=== PATIENT | female | born 1965 | race Caucasian/White ===

== ENCOUNTER → 2021-03-07 13:01 | Outpatient (CLI) | payer BC, SELFPAY ==
--- NOTE | ~2021-03-07 | MM_ITS ---
EXAMINATION: MM screening erendira BI w alisosn HISTORY: Screening mammogram TECHNIQUE: Craniocaudal and mediolateral oblique 3-D tomosynthesis images were obtained and synthetic 2-D images were generated. CAD analysis was submitted and interpreted. COMPARISON: 05/20/2015, 05/02/2014, 12/26/2012 bilateral digital screening mammogram examinations BREAST PARENCHYMAL COMPOSITION: The breasts are heterogeneously dense, which may obscure small masses . FINDINGS: Occasional bilateral benign calcifications. There is no evidence of suspicious mass, calcif ication, or architectural distortion to suggest malignancy in either breast. There has been no suspic ious interval change. IMPRESSION: 1. No mammographic evidence of malignancy. 2. Recommend routine screening mammography in one year. BI-RADS Category 2: Benign finding(s). Reviewed, dictated and finalized at location A.
--- NOTE | ~2021-03-07 | DEXA_ITS ---
Bone Density Report Name: Trina Yousif Age: 55 Sex: Female Ethnicity: White Date of : 1965 Indication: postmenopausal; screening for osteoporosis; Referring Provider: Daren Ha Study: Bone densitometry was performed. Exam Date: March 07, 2021 Accession number: [id number] Bone Density: Region BMD T-score Z-score Classification AP Spine (L1-L4) 0.923 -1.1 0.1 Osteopenia Femoral Neck (Left) 0.597 -2.3 -1.1 Osteopenia Total Hip (Left) 0.727 -1.8 -0.9 Osteopenia Femoral Neck (Right) 0.602 -2.2 -1.1 Osteopenia Total Hip (Right) 0.728 -1.8 -0.9 Osteopenia Total Hip Mean 0.728 -1.8 -0.9 Osteopenia World Health Organization criteria for BMD impression classify patients as: Normal (T-score at or above -1.0), Osteopenia (T-score between -1.0 and -2.5), or Osteoporosis (T-score at or below -2.5). 10-year Fracture Risk(1): Major Osteoporotic Fracture 9.3% Hip Fracture 1.4% Reported Risk Factors: [place] (), Neck BMD=0.597, BMI=24.1 (1) FRAX(R) Version 3.08. Fracture probability calculated for an untreated patient. Fracture probability may be lower if the patient has received treatment. Clinical Information Provided by Patient: Patient maximum height was 65.7 Menopause Age: 39 No regular weight bearing exercise Does not regularly consume dairy products Drinks caffeinated beverages Onset of menses at age 14 Number of children 2 Impression: The patient has low bone mass, based on the Left Femoral Neck T-score. The patient has an estimated ten-year risk of hip fracture of 1.4% and an estimated ten-year risk of major fracture of 9.3%, based on the WHO FRAX algorithm. Discussion: BONE DENSITY IS LOW AT ONE OR MORE SKELETAL SITES. This patient's lowest T-score is low at one or more skeletal sites. It meets the World Health Organization's (WHO) criteria for ?low bone mass? (T-score between -1.0 and -2.5). The patient's 10-year risk of fracture as calculated by FRAX is less than the threshold where pharmacological therapy is recommended by the National Osteoporosis Foundation (NOF). However, all treatment decisions require clinical judgment and consideration of individual patient factors, including patient preferences, comorbidities, previous drug use, risk factors not captured in the FRAX model (e.g., frailty, falls, vitamin D deficiency, increased bone turnover, interval significant decline in bone density) and possible under or overestimation of fracture risk by FRAX. The patient should follow a healthful lifestyle (good nutrition with adequate calcium and vitamin D, and appropriate weight-bearing exercise). Follow-Up: Consider repeating this study in 2 to 3 years to reassess this patient's status, or sooner if there is some new clinical indication. Reported by: TOMÁS on 03/07/2021 1:
== END ==
PROVIDERS: Visit Provider Physician Assistant
DX: Z12.31 Encounter for screening mammogram for malignant neoplasm of breast (principal); Z78.0 Asymptomatic menopausal state; M85.88 Other specified disorders of bone density and structure, other site; M85.852 Other specified disorders of bone density and structure, left thigh; M85.851 Other specified disorders of bone density and structure, right thigh
CPT/HCPCS: 77063; 77067; 77080

== ENCOUNTER 2022-06-23 00:34 | Day surgery (SDC) | payer BC, SELFPAY ==
[2022-06-19 08:50] VITALS: BMI 21.6
[2022-06-23 11:14] VITALS: BP 102/75; PULSE 96; RESP 18; TEMP 36.8; O2SAT 100; BMI 21.6
[2022-06-23] MEDS: LACTATED RINGERS 1,000 ML 150 ML IV CONT (11:39)
--- NOTE | 2022-06-23 11:45 | PM.HPGS ---
History of Present Illness History of Present Illness Consent: Risks, benefits, and alternatives have been discussed and questions answered. Patient agrees to proceed with procedure. Chief complaint: weight loss, constipation Narrative: Trina Yousif is a 56 year old female Presents for colonoscopy. Patient complaints of ongoing constipation. She has difficulty with bowel habits. Initially prescribed Linzess but this was stopped because of lack of insurance coverage. She currently takes to a lax for relief of symptoms. Patient denies any significant abdominal pain. She does report is modest weight loss. Family history is noncontributory. Previous screening colonoscopy 2013 was unremarkable. Patient presents today for colonoscopy to exclude organic disease. Review of Systems Review of Systems: Review of systems noncontributory. PMFSH Family History Family History Father Hypertension Family history of cardiovascular disease Social History Social History Smoking status: Former smoker Alcohol intake: current Drinks per week: 2 Substance use: never Substance use type: marijuana Other substance usage details: DAILY-PRESCRIPTION Living arrangements: with family Spiritual care concerns: No Meds Home Medications and Allergies Home Medications Medication Instructions Recorded Confirmed Type alprazolam 0.25 mg tablet 0.25 mg PO TID PRN anxiety #30 tabs 11/15/21 06/19/22 Rx sodium,potassium,mag sulfates 17.5 See Rx Instructions PO .COMPLEX 06/12/22 06/19/22 Rx gram-3.13 gram-1.6 gram oral soln #354 mL (Suprep Bowel Prep Kit) fluoxetine 40 mg capsule 40 mg PO DAILY #90 caps 06/16/22 06/19/22 Rx bisacodyl 5 mg tablet,delayed 5 mg PO HS 06/19/22 06/19/22 History release (Dulcolax (bisacodyl)) celecoxib 200 mg capsule 200 mg PO DAILY 06/19/22 06/19/22 History trazodone 50 mg tablet 150 mg PO HS 06/19/22 06/19/22 History Allergies Allergy/AdvReac Type Severity Reaction Status Date / Time No Known Allergies Allergy Verified 06/19/22 08:50 Vital Signs Vital Signs - 24 hr 06/23/22 11:14 Temperature 98.3 F Pulse Rate 96 Respiratory Rate 18 Blood Pressure 102/75 Pulse Oximetry 100 Oxygen Delivery Room Air Exam Narrative: Physical exam reveals patient to be alert. Vital signs stable. HEENT exam is unremarkable. Patient is anicteric. Lungs are clear to auscultation and percussion. Heart is without murmur or extra sounds. Abdomen bowel sounds present soft nontender with no organomegaly. Digital external rectal exam is normal. Assessment and Plan Assessment and plan (1) Constipation, unspecified: Qualifiers: Constipation type: unspecified constipation type Qualified Code(s): K59.00 - Constipation, unspecified Code(s): K59.00 - Constipation, unspecified Status: Acute Assessment and Plan: Patient appears to have chronic idiopathic constipation. Would recommend that patient start with an osmotic laxative supplemented with fiber stool softeners. I would advise FiberCon 2 tabs p.o. b.i.d. supplemented with MiraLax taken daily. If this fails to alleviate symptoms then supplementing this with to collect may be beneficial. Colonoscopy requested will be performed today.
[2022-06-23 12:39] VITALS: BP 95/58; PULSE 61; RESP 18; O2SAT 99
[2022-06-23 12:49] VITALS: BP 107/66; PULSE 64; RESP 22; O2SAT 100
[2022-06-23 12:59] VITALS: BP 104/69; PULSE 61; RESP 24; O2SAT 100
== END 2022-06-23 13:10 | disposition home or self-care (01) ==
PROVIDERS: PCP Emergency Medicine; Visit Provider Internal Medicine Gastroenterology
PROC: 0DJD8ZZ Inspection of Lower Intestinal Tract, Via Natural or Artificial Opening Endoscopic (ICD-10-PCS; CPT 45378; principal; 2022-06-23 12:30)
DX: K59.00 Constipation, unspecified (principal); K64.8 Other hemorrhoids; F12.90 Cannabis use, unspecified, uncomplicated
CPT/HCPCS: 45378; J2001; J2704; J7120

== ENCOUNTER → 2023-05-08 10:27 | Outpatient (CLI) | payer BC, SELFPAY ==
--- NOTE | ~2023-05-08 | XR_ITS ---
XR chest 2V 05/08/2023 10:39 Indication: Cough and shortness of breath Procedure: 2 view chest Comparison: 10/11/2018 Findings: Heart size normal. No focal air space disease, pulmonary edema, pleural effusion or suspect ed pneumothorax. The lungs are hyperinflated which is consistent with, but not diagnostic of chronic obstructive pulmonary disease. Impression: 1: No acute cardiopulmonary disease. Reviewed, dictated and finalized at location L. Impression: 1: No acute cardiopulmonary disease.
== END ==
PROVIDERS: PCP Emergency Medicine; Visit Provider Emergency Medicine
DX: R05.9 Cough, unspecified (principal); R06.02 Shortness of breath
CPT/HCPCS: 71046

== ENCOUNTER 2023-07-27 10:39 | Emergency (ER) | payer BC, SELFPAY ==
--- NOTE | ~2023-07-27 | XR_ITS ---
EXAMINATION: XR chest 2V DATE: 07/27/2023 11:05 INDICATION: Nonproductive cough TECHNIQUE: PA and lateral views of the chest are obtained. COMPARISON: 05/08/2023 FINDINGS: The lungs are free of acute opacities. No pleural effusion or pneumothorax. The cardiomedia stinal silhouette is normal. There is mild thoracic spondylosis. IMPRESSION: 1. No acute cardiopulmonary abnormality. Reviewed, dictated and finalized at location B. [employer] PROJECT MANAGER
[2023-07-27 10:44] VITALS: BP 132/83; PULSE 78; RESP 16; TEMP 36.9; O2SAT 97
--- NOTE | 2023-07-27 10:49 | ED.GENADULT ---
HPI - General Adult General Chief complaint: Upper Respiratory Infection Stated complaint: Cough/Shortness of Breath Source: patient, RN notes reviewed and old records reviewed Mode of arrival: ambulatory Limitations: no limitations History of Present Illness HPI narrative: 58-year-old female presents to [facility] with complaints dry cough, sinus congestion, sinus pressure bilateral ear pressure for over 2 weeks. Patient states had a similar issue in May saw her PCP who gave her benzonatate and asemax inhaler that helped at that time but is not helping this time. patient denies chest pain, dizziness, sore throat, vomiting. MD complaint: cough Onset (ago): week(s) (2) Related Data Home Medications Medication Instructions Recorded Confirmed bisacodyl 5 mg tablet,delayed 5 mg PO HS 06/19/22 05/08/23 release (Dulcolax (bisacodyl)) Allergies Allergy/AdvReac Type Severity Reaction Status Date / Time No Known Allergies Allergy Verified 05/08/23 09:53 Review of Systems Constitutional: Constitutional: Reports as per HPI, Reports body ache(s), Denies chills, Reports fatigue, Denies fever(s) and Denies headache(s) Eyes: Eyes: Reports no additional eye complaints and Denies blurry vision ENT: Reports as per HPI, Denies vertigo, Denies dizziness, Denies ear discharge, Denies otalgia, Denies facial pain, Denies headache(s), Reports nasal congestion, Reports nasal discharge, Reports sinus pain, Reports sinus pressure and Denies sore throat Cardiovascular: Cardiovascular: Reports no additional cardiovascular complaints, Denies chest pain, Denies chest pain at rest, Denies rapid heart rate and Denies dyspnea Respiratory: Respiratory: Reports as per HPI, Reports chest congestion, Reports cough, Reports pain on inspiration, Reports pain with cough and Reports dyspnea Gastrointestinal: Gastrointestinal: Denies abdominal pain, Denies diarrhea, Denies nausea and Denies vomiting Integumentary/Breasts: Skin/Breast: Denies rash Neurologic: Reports system reviewed and no additional complaints, except as documented, Denies vertigo, Denies dizziness and Denies headache(s) Endocrine: Endocrine: Denies fatigue PMFSH Past Medical History Medical History Anemia Family History Family History Father Hypertension Family history of cardiovascular disease Social History Social History Smoking status: Former smoker Alcohol intake: current Drinks per week: 2 Substance use: never Substance use type: marijuana Other substance usage details: DAILY-PRESCRIPTION Lack of Transportation: No Lack of Food: Never True Current Housing: I Have Housing Concerned About Future Housing: No Difficulty Paying Gas/Electric Bills: No Difficulty Paying for Meds: No Currently Unemployed: No Education: Bachelor's Degree Difficulty w/ Childcare or Family Care: No Living arrangements: with family Spiritual care concerns: No Comments At the time of my signature, I reviewed and agree with the nursing past medical, surgical, social, and family history. There is no relevant family history pertinent to the patient complaint. Exam Const: General: cooperative, no acute distress, ill appearing acutely and well nourished Nutritional Appearance: well nourished Orientation/consciousness: patient oriented x3 Limitations: no limitations HENMT: Head: normal to inspection and normocephalic Ears: external ears normal, TM's normal bilaterally, mastoids normal and Abnormal EAC present Face/Nose/Sinus: normal facial exam Face and sinus: sinus tenderness Mouth: Yes Normal oral and palatal mucosa present, Yes oropharynx normal and Yes moist mucous membranes Throat: tonsils normal, uvula midline, normal tonsils, normal posterior oropharynx and no uvular edema Eyes: G
== END 2023-07-27 11:26 | disposition home or self-care (01) ==
PROVIDERS: Emergency Provider Registered Nurse; PCP Emergency Medicine
DX: J40 Bronchitis, not specified as acute or chronic (principal); Z87.891 Personal history of nicotine dependence
CPT/HCPCS: 71046; 99213; G0463

== ENCOUNTER 2023-11-14 07:50 | Outpatient (CLI) | payer BC, SELFPAY ==
--- NOTE | 2023-11-14 08:40 | EST_ITS ---
Patient Info Name: Trina Yousif Age: 58 years : 1965 Gender: Female Ht: 65 in Wt: 124 lbs BSA: 1.60 m2 HR: 58 bpm BP: 103 / 77 mmHg Heart Rhythm: Sinus Rhythm Exam Date: 11/14/2023 8:33 AM Exam Location: Echo Lab Patient Status: Outpatient Admit Date: 11/14/2023 Staff Ordering Physician: Fritz Heath MD Investor Relations Associate: Marianna Anne RDCS Attending Provider: DR. GUZMAN Referring Physician: Kumar CORBETT; Exercise Technologist: Marianna Anne RDCS Exercise Physician: Joshua Guzman DO Exam Type: CA stress echo Study Info Indications R07.9 - Chest pain, unspecified Treadmill exercise stress echocardiogram is performed. Summary 1. 1. Negative Douglas exercise stress test for ischemic ST changes by ECG criteria. 2. 2. Excellent functional capacity, achieving 11 METs of workload. 3. 3. Appropriate HR response to exercise. 4. 4. Appropriate HR recovery at 1 minute post exercise. 5. 5. Negative stress echocardiogram for ischemia by wall motion analysis. 6. 6. Patient informed of the above results. Stress Echo Findings Left Ventricle Appropriate increase in LV endocardial thickening with systole. Appropriate augmentation of contractility with systole. No wall motion abnormality. Left Ventricle Normal LV systolic function, no wall motion abnormality. Protocol: Douglas Stress ECG Details Stage: REST Duration (min): 1 min : 5 sec Speed (mph): 0.0 Grade (%): 0 HR (bpm): 58 SBP (mmHg): 103 DBP (mmHg): 77 METS: --- Stage: REST Duration (min): 16 min : 31 sec Speed (mph): 0.0 Grade (%): 0 HR (bpm): 64 SBP (mmHg): 103 DBP (mmHg): 77 METS: --- Stage: STAGE 1 Duration (min): 1 min : 0 sec Speed (mph): 1.7 Grade (%): 10 HR (bpm): 91 SBP (mmHg): 103 DBP (mmHg): 77 METS: --- Stage: STAGE 1 Duration (min): 2 min : 0 sec Speed (mph): 1.7 Grade (%): 10 HR (bpm): 93 SBP (mmHg): 103 DBP (mmHg): 77 METS: --- Stage: STAGE 1 Duration (min): 3 min : 0 sec Speed (mph): 1.7 Grade (%): 10 HR (bpm): 94 SBP (mmHg): 151 DBP (mmHg): 80 METS: --- Stage: STAGE 2 Duration (min): 1 min : 0 sec Speed (mph): 2.5 Grade (%): 12 HR (bpm): 103 SBP (mmHg): 151 DBP (mmHg): 80 METS: --- Stage: STAGE 2 Duration (min): 2 min : 0 sec Speed (mph): 2.5 Grade (%): 12 HR (bpm): 108 SBP (mmHg): 156 DBP (mmHg): 83 METS: --- Stage: STAGE 2 Duration (min): 3 min : 0 sec Speed (mph): 2.5 Grade (%): 12 HR (bpm): 104 SBP (mmHg): 156 DBP (mmHg): 83 METS: --- Stage: STAGE 3 Duration (min): 1 min : 0 sec Speed (mph): 3.4 Grade (%): 14 HR (bpm): 124 SBP (mmHg): 152 DBP (mmHg): 84 METS: --- Stage: STAGE 3 Duration (min): 2 min : 0 sec Speed (mph): 3.4 Grade (%): 14 HR (bpm): 121 SBP (mmHg): 152 DBP (mmHg): 84 METS: --- Stage: STAGE 3 Duration (min): 3 min : 0 sec Speed (mph): 3.4 Grade (%): 14 HR (bpm): 122 SBP (mmHg): 152 DBP (mmHg): 84 METS: --- --------
== END 2023-11-14 07:51 | disposition home or self-care (01) ==
PROVIDERS: PCP Emergency Medicine; Visit Provider Emergency Medicine
DX: R07.9 Chest pain, unspecified (principal)
CPT/HCPCS: 93351

== ENCOUNTER 2025-06-12 07:56 | Outpatient (CLI) | payer BC, SELFPAY ==
--- NOTE | ~2025-06-12 | CT_ITS ---
EXAMINATION: CT abdomen pelvis w con DATE: 06/12/2025 08:31 INDICATION: Generalized abdominal pain. TECHNIQUE: Computed tomography (CT) of the abdomen and pelvis was performed with 100 mL Omnipaque 350 intravenous contrast. Automated exposure control and iterative reconstruction technique were employed. The dose-length product was 217.19 mGy-cm. COMPARISON: CT abdomen and pelvis 10/11/2018 FINDINGS: The visualized portions of the lung bases demonstrate mild atelectasis. No pleural effusion. The heart size is normal. No pericardial effusion. The liver demonstrates focal steatosis adjacent to the falciform ligament. The gallbladder, spleen, pancreas, and adrenal glands are normal. There is cortical thinning of right kidney. There is a 1.7 cm cyst in left kidney. There are no dilated loops of bowel. The appendix is normal. There are no pathologically enlarged lymph nodes. There is physiologic fluid in the pelvis. There is mild thoracic and lumbar spondylosis. IMPRESSION: 1. No etiology for the patient's symptoms. Reviewed, dictated and finalized at location E.
[2025-06-12 08:24] LABS: Estimated Glomerular Filt Rate 50
== END 2025-06-12 07:57 | disposition home or self-care (01) ==
LOC: ANHIMG 08:01
PROVIDERS: PCP Nurse Practitioner Family; Visit Provider Nurse Practitioner Family
DX: K59.00 Constipation, unspecified (principal); R10.84 Generalized abdominal pain
CPT/HCPCS: 74177; Q9967